=== PATIENT | male | born 1950 | race Caucasian/White ===

== ENCOUNTER 2017-11-17 05:58 | Day surgery (SDC) | payer MEDICARE, OTHER ==
[~2017-11-17] VITALS: Ht 180.3 cm; Wt 91.2 kg
[~2017-11-17 05:58] MED LIST: ASPI81CH PO; FISH1000 PO; GLUCOSAMINE-CH1 EAC3 PO; GLUCOSAMINE-CH1 EAC8 PO; LISI5 PO; LORA1SY PO; METO50ER PO; ROSU10TA PO; SILD25T PO; TAMS.4ER PO
== END 2017-11-17 23:08 | disposition home or self-care (01) ==
LOC: ORSCMMR 05:58
PROVIDERS: Surgery
PROC: 0JBF0ZX Excision of Left Upper Arm Subcutaneous Tissue and Fascia, Open Approach, Diagnostic (ICD-10-PCS; principal; 2017-11-17 07:30)
DX: D17.1 Benign lipomatous neoplasm of skin and subcutaneous tissue of trunk (principal); I10 Essential (primary) hypertension; I25.10 Atherosclerotic heart disease of native coronary artery without angina pectoris; Z79.899 Other long term (current) drug therapy
CPT/HCPCS: 88304; J0690; J1100; J1885; J2250; J2405; J7120

== ENCOUNTER → 2020-09-12 | Outpatient (CLI) | payer MEDICARE, OTHER | END | disposition home or self-care (01) | LOC: LAB SHORT 08:12 → PLD 08:12 | DX: C43.59 Malignant melanoma of other part of trunk (principal) | CPT/HCPCS: 88305 ==

== ENCOUNTER → 2020-10-03 | Outpatient (CLI) | payer MEDICARE, OTHER | LOC: LAB SHORT 15:04 → PLD 15:04 | DX: D03.59 Melanoma in situ of other part of trunk (principal) | CPT/HCPCS: 88305 ==

== ENCOUNTER → 2020-11-01 | Outpatient (CLI) | payer MEDICARE, OTHER | END | disposition home or self-care (01) | LOC: PLD 12:21 → LAB SHORT 12:21 | DX: C44.712 Basal cell carcinoma of skin of right lower limb, including hip (principal) | CPT/HCPCS: 88305 ==

== ENCOUNTER → 2021-04-10 | Outpatient (CLI) | payer MEDICARE, OTHER | END | disposition home or self-care (01) | LOC: LAB SHORT 14:30 → LAB 14:30 | DX: D22.5 Melanocytic nevi of trunk (principal); L82.1 Other seborrheic keratosis | CPT/HCPCS: 88305 ==